=== PATIENT | female | born 1950 | race Caucasian/White ===

== ENCOUNTER 2025-01-27 09:02 | Outpatient (CLI) | payer OTHER, SELFPAY | END 2025-01-27 09:03 | disposition home or self-care (01) | LOC: AMB 01-28 13:19 | PROVIDERS: PCP Internal Medicine; Visit Provider Emergency Medicine | DX: R11.2 Nausea with vomiting, unspecified (principal) | CPT/HCPCS: A0425; A0427 ==

== ENCOUNTER 2025-01-27 09:30 | Emergency (ER) | payer OTHER, SELFPAY ==
[2025-01-27] VITALS (27 sets, daily range): BP systolic 89–125; BP diastolic 46–67; PULSE 53–77; RESP 6–18; TEMP 36.1–36.3; O2SAT 87–100; BMI 30.5
--- NOTE | 2025-01-27 09:53 | CRLHL7_ITS ---
For Patients: As a result of the 21st Century Cures Act, medical imaging exams and procedure reports are released immediately into your electronic medical record. You may view this report before your referring provider. If you have questions, please contact your health care provider. INDICATION: Coffee-ground emesis. Abdominal pain. TECHNIQUE: CTA abdomen and pelvis acquired without and with 95 mL Isovue 370 IV contrast. Coronal and sagittal MIP reconstructions were performed. COMPARISON: None available. FINDINGS: Lower chest: Bibasilar subsegmental atelectasis. Punctate pulmonary nodules in the anterior right lower lobe measuring up to 0.2 cm. Liver: No suspicious focal hepatic lesion, noting that the superior liver was not included within field of view on venous phase imaging. Gallbladder and bile ducts: Extensive cholelithiasis. No secondary signs of acute cholecystitis. Pancreas: Fatty atrophy. No pancreatic duct dilation. Spleen: Unremarkable. Adrenal glands: Unremarkable. Kidneys: Kidneys enhance symmetrically, without hydronephrosis. Bilateral percutaneous nephrostomy tubes are present. There is significant air within the left renal collecting system, without significant perinephric inflammation. Small amount of air within the right renal collecting system. Too small to characterize hypodense left renal lesions. Retroperitoneum: Minimally enlarged left retroperitoneal lymph nodes. Bowel and mesentery: Postsurgical changes of subtotal colectomy, with left lower quadrant end colostomy. Large parastomal hernia is present, which contains a short segment loop of small bowel. Although the affected loops of small bowel are not significantly dilated, there is mild perienteric inflammation, worrisome for early small bowel obstruction. Adjacent to the blind ending rectal stump, there is significant inflammation, as well as a small collection/abscess measuring approximately 3.3 x 2.3 cm. This abuts the urinary bladder, and appears to fistulize/invade. Persistent ill-defined soft tissue is present adjacent to the rectal stump sutures and cecum. Probable prominent duodenal diverticulum. Bladder: Large amount of non dependent air within the urinary bladder, with findings suspicious for fistulization with the rectal stump. Reproductive organs: Post hysterectomy. Pelvic lymph nodes: No lymphadenopathy. Vessels: Atherosclerotic calcifications. Abdominal wall: Multiple abdominal wall hernias and parastomal hernia as above. Bones: Multilevel degenerative changes of the spine. Bones are diffusely osteopenic. IMPRESSION: 1. 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 2. Significant inflammation adjacent to the blind ending rectal stump, with a small collection/abscess measuring approximately 3.3 x 2.3 cm. This appears to abut and fistulize/invade into the urinary bladder, where there is a large amount of non dependent air. 3. Air is present within the bilateral renal collecting systems, left greater than right. No significant perinephric or periureteral inflammation is present, findings are favored to reflect sequelae of percutaneous nephrostomy tube manipulation, correlate clinically for pyelonephritis. 4. Indeterminate minimally enlarged left retroperitoneal lymph nodes, and punctate pulmonary nodules. Please note that all CT scans at this facility use dose modulation, iterative reconstruction, and/or weight-based dosing when appropriate to reduce radiation dose to as low as reasonably achievable. Dictated by Erasmo Laird MD @ 01/27/2025 12:42:41 PM (Electronically Signed)
[2025-01-27 10:04] LABS: Lactate* 1.3 mmol/L (0.5-1.9)
[2025-01-27] MEDS: fentaNYL 100 MCG/2 ML inj 50 MCG IVP (10:16)
[2025-01-27] MEDS: ONDANSETRON 2 MG/ML inj 4 MG IVP (10:16)
[2025-01-27] MEDS: PANTOPRAZOLE SODIUM 40 MG INJ 80 MG IVP (10:16)
[2025-01-27] MEDS: 0.9 % SODIUM CHLORIDE 500 ML 500 ML IV (10:17)
[2025-01-27 10:18] LABS: Basophils Percent Auto 0.1 % (0.0-3.0); Eosinophils Percent Auto 2.8 % (0.0-7.0); Hematocrit 33.4 % (33.0-51.0); Hemoglobin* 9.3 gm/dL (12.0-16.0); Immature Granulocytes Pct Auto 0.3 %; Lymphocytes Percent Auto 6.6 % (20-44); Mean Corpuscular HGB Conc 28 gm/dL (32-36); Mean Corpuscular Hemoglobin 23 pg (26-34); Mean Corpuscular Volume 81 fL (80-100); Monocytes Percent Auto 5.1 % (0.0-11.0); Neutrophils Percent Auto 85.1 % (42.0-72.0); Platelet Count* 292 K/uL (140-440); RDW Coefficient of Variation % 18.2 % (11.5-15.5); Red Blood Count 4.11 m/uL (4.00-5.20); White Blood Count* 14.74 K/uL (4.50-11.00)
[2025-01-27 10:22] LABS: Chloride* 99 mmol/L (96-114); Potassium* 5.1 mmol/L (3.6-5.1); Slide Review Reflex Yes; Sodium* 139 mmol/L (135-149)
[2025-01-27 10:24] LABS: Alanine Aminotransferase* 11 U/L (4-35); Alkaline Phosphatase* 110 U/L (40-150); Anion Gap 6 mEq/L (7-15); Aspartate Amino Transferase* 22 U/L (12-35); Bilirubin Total* 0.4 mg/dL (0.1-1.5); Blood Urea Nitrogen* 27 mg/dL (7-30); Carbon Dioxide* 34 mmol/L (20-32); Creatinine* 1.4 mg/dL (0.5-1.5); Est. Creatinine Clearance* 31.72; Estimated Glomerular Filt Rate 39 ml/min
[2025-01-27 10:25] LABS: Calcium* 9.6 mg/dL (8.4-10.6); Glucose* 132 mg/dL (60-115); INR 1.06 (0.91-1.10); Lipase* 58 U/L (23-300); Prothrombin Time 14.7 Seconds
[2025-01-27 10:52] LABS: Slide Review Acceptable Review (Acceptable)
--- NOTE | 2025-01-27 11:02 | ED.GENADULT ---
HPI - General Adult General Chief complaint: GI Bleed Stated complaint: GI Time Seen by Provider: 01/27/25 09:53 History of Present Illness HPI narrative: 74-year-old female with a complex past medical history was brought to the ER today from her care center at [facility] by EMS for evaluation of acute upper GI bleed. History from paramedics is that she is medically complex. She has long-term resident of [facility] [address]. 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 She is on Eliquis (unknown indication). No she started having nausea and indigestion yesterday and this morning had a large volume visible coffee-ground emesis 1 time. They describe 200-300 mL of coffee-ground blood. Since vomiting the patient says she is feeling better. Indigestion and nausea are resolved. Blood pressure was in low normal range 90s over 50s. History from the patient is that she does have recent UTIs. It turns out she was probably in the hospital at [place] about a week ago and was discharged. She does not think she has been on the oral antibiotics since discharge (sounds like maybe she finished up her antibiotic course with IV meds given in the hospital). She is on Eliquis for stroke prophylaxis with AFib. She does not recall any previous history of DVT or PE. She does have a chronic ostomy in her left lower quadrant. She also has a fistula in her right lower quadrant that has been draining some fluid lately. Her current fistula started a couple of weeks ago, she thinks. 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 She does not know of any previous history of Crohn's. Unclear why she is getting the fistulas. She also has bilateral nephrostomy tubes. She is not sure why they replaced. They have been draining yellow fluid. She know she has a history of gallstones but never got her gallbladder out. She apparently says that her doctors told her that if the gallbladder was not assume the series problems, she would be better off not have surgery. She has a history of acute kidney injury from NSAIDs so no longer takes them (and has not taken them for years). We think her most recent dose of Eliquis was last night. She does take chronic oxycodone for her low back pain (5 mg b.i.d.) but was not able to take it this morning. She is asking for an oxy now because her back is hurting. Per her the paperwork that she brought with her from [facility] her she had a hemoglobin of 7.7 drawn and that [facility] on 01/20. Baseline creatinine about 1.3. Related Data Home Medications ?Medication ?Instructions ?Recorded ?Confirmed acetaminophen 1,000 mg PO TID PRN 01/27/25 01/27/25 albuterol 90 mcg/actuation aerosol mcg inhalation 01/27/25 inhaler apixaban 2.5 mg tablet 2.5 mg PO BID 01/27/25 01/27/25 cyanocobalamin (vitamin B-12) 1,000 mcg PO DAILY 01/27/25 01/27/25 1,000 mcg capsule duloxetine 60 mg capsule,delayed 60 mg PO DAILY 01/27/25 01/27/25 release (Cymbalta) famotidine 20 mg tablet 20 mg PO DAILY 01/27/25 01/27/25 gabapentin 100 mg capsule 100 mg PO TID 01/27/25 01/27/25 magnesium oxide 400 mg PO DAILY 01/27/25 01/27/25 nystatin 100,000 unit/gram topical 1 applic topical TID 01/27/25 01/27/25 powder oxycodone 5 mg capsule 5 mg PO Q12H 01/27/25 01/27/25 polyethylene glyco 17 gm 1 sc PO DAILY 01/27/25 01/27/25 rosuvastatin 10 mg tablet (Crestor) 10 mg PO DAILY 01/27/25 01/27/25 sennosides 8.6 mg-docusate sodium 1 tab-cap PO BID 01/27/25 01/27/25 50 mg tablet (Docuzen) simethicone 125 mg tablet 125 mg PO TID-QID PRN 01/27/25 01/27/25 (Bicarsim Forte) Allergies Allergy/AdvReac Type Severity Reaction Status Date / Time aspirin Allergy Unknown Verified 01/27/25 09:51 calcium Allergy Unknown Verified 01/27/25 09:51 cetirizine Allergy Unknown Verified 01/27/25 09:51 ibuprofen (From Motrin) Allergy Unknown Verified 01/27/25 09:51 sulfamethoxazole (From Allergy Unknown Verified 01/27/25 09:51 Bactrim) trimethoprim (From Bactrim) Allergy Unknown Verified 01/27/25 09:51 [facility] Social History Smoking Status: Current some day smoker What tobacco products do you use: cigarettes Do you use any of these nicotine containing products: None How often do you have a drink containing alcohol: never How often do you have six or more drinks on one occasion: Never AUDIT-C Alcohol total score: 0 service: No Exam Narrative: Exam Narrative: Constitutional: Appears well-developed and well-nourished. Alert. Conversant. Non toxic. HENT: Head: Atraumatic. Nose: Nose normal. Mouth/Throat: Oral mucosa is clear and moist. no trismus. Pharynx normal. Tonsils symmetric. No tonsillar enlargement, erythema, or exudate. Eyes: Conjunctivae pale. EOM normal. Pupils equal, round, and reactive to light. No scleral icterus. Neck: Normal range of motion. Neck supple. No tracheal deviation present. Cardiovascular: Normal rate, regular rhythm. No gallop. No friction rub. No murmur heard. Symmetric radial artery pulses Pulmonary/Chest: Effort normal. No stridor. No respiratory distress. No wheezes. No rales. No rhonchi . No tenderness. Abdominal: Soft. Bowel sounds normal. No distension. No mass. Mild epigastric and suprapubic tenderness. No rebound. No guarding. Ostomy in left lower quadrant draining air and soft light brown stool. No blood or melena. She also has a fistula in her right lower quadrant with the opening just below the skin fold of her pannus. Skin around the fistula looks good. Does a small amount of clear fluid there but I do not see any blood or purulent drainage coming out. She also has bilateral nephrostomy tubes in each of them are draining light yellow urine. No bloody or cloudy urine. Musculoskeletal: RUE: Normal range of motion. No tenderness. No deformity LUE: Normal range of motion. No tenderness. No deformity RLE: Normal range of motion. No edema. No tenderness. No deformity LLE: Normal range of motion. No edema. No tenderness. No deformity Neurological: Alert and oriented to person, place, and time. Normal strength. CN II-VII intact. No sensory deficit. GCS eye subscore is 4. GCS verbal subscore is 5. GCS motor subscore is 6. Normal coordination Skin: Skin is warm and dry. No rash noted. Pale but not mottled in no pallor. Normal capillary refill. Psychiatric: Normal mood. Normal affect. Const: Vital Signs, click to edit/add: Vital Signs - 24 hr 01/27/25 09:41 01/27/25 10:00 01/27/25 10:20 Temperature 97.4 F L Pulse Rate Pulse Rate [Pulse Oximeter] 77 Respiratory Rate 16 16 16 Blood Pressure Blood Pressure [Ri ght Upper Arm] 103/67 Pulse Oximetry 87 L 92 88 Oxygen Delivery Me thod Room Air Nasal Cannula Nasal Cannula Oxygen Flow Rate 2 2 01/27/25 10:30 01/27/25 11:02 01/27/25 11:14 Temperature Pulse Rate 60 66 Pulse Rate [Pulse Oximeter] 66 Respiratory Rate 16 16 Blood Pressure 94/52 L Blood Pressure [Ri ght Upper Arm] 125/60 Pulse Oximetry 93 95 Oxygen Delivery Me thod Nasal Cannula Nasal Cannula Oxygen Flow Rate 3 3 01/27/25 11:33 01/27/25 11:45 01/27/25 12:00 Temperature Pulse Rate 57 L 55 L 62 Pulse Rate [Pulse Oximeter] Respiratory Rate 11 L 11 L 12 Blood Pressure Blood Pressure [Ri ght Upper Arm] Pulse Oximetry 99 97 99 Oxygen Delivery Me thod Oxygen Flow Rate 01/27/25 12:15 01/27/25 13:11 Temperature 97.2 F L Pulse Rate 58 L 54 L Pulse Rate [Pulse Oximeter] Respiratory Rate 7 L 16 Blood Pressure 94/52 L 95/50 L Blood Pressure [Ri ght Upper Arm] Pulse Oximetry 98 99 Oxygen Delivery Me thod Nasal Cannula Oxygen Flow Rate 2 Course Course ED Course: Recheck-blood pressure stable. Says she is feeling better. Reevaluation(s) Reevaluation #1: Recheck-patient gone to CT. CBC actually shows a white count of 14. Unclear if she has an infection or this is reactive. Hemoglobin is 9.1 this morning which is actually up about a g and half compared to last week. Suspect this is probably due to hemoconcentration. Clinically she looks pale and with reported baseline hemoglobin of 7.7 and this morning, I suspect her true hemoglobin is probably lower then 9.1. I have ordered 1 unit of crossmatched packed red cells. Patient gives verbal and written consent. Vital Signs Vital signs: Initial Vital Signs Temperature 97.4 F L 01/27/25 09:41 Temperature Source Temporal Artery Scan 01/27/25 09:41 Pulse Rate 77 01/27/25 09:41 Respiratory Rate 16 01/27/25 09:41 Blood Pressure 103/67 01/27/25 09:41 Blood Pressure Mean 79 01/27/25 09:41 Blood Pressure Position Sitting 01/27/25 09:41 Pulse Oximetry 87 L 01/27/25 09:41 Oxygen Delivery Method Room Air 01/27/25 09:41 Vital Signs Temperature 97.4 F L 01/27/25 09:41 Pulse Rate 77 01/27/25 09:41 Respiratory Rate 16 01/27/25 09:41 Blood Pressure 103/67 01/27/25 09:41 Pulse Oximetry 87 L 01/27/25 09:41 Oxygen Delivery Method Room Air 01/27/25 09:41 Temperature 97.2 F L 01/27/25 13:11 Pulse Rate 54 L 01/27/25 13:11 Respiratory Rate 16 01/27/25 13:11 Blood Pressure 95/50 L 01/27/25 13:11 Pulse Oximetry 99 01/27/25 13:11 Oxygen Delivery Method Nasal Cannula 01/27/25 12:15 Oxygen Flow Rate 2 01/27/25 12:15 Medications Administered Medications: Generic Name Dose Route Start Last Admin Trade Name Freq PRN Reason Stop Dose Admin Piperacillin Sod/Tazobactam 100 mls @ 200 mls/hr 01/27/25 13:30 01/27/25 13:28 Sod 4.5 gm/ Sodium Chloride IVPB 200 mls/hr Q6H YE Administration Discontinued Medications Generic Name Dose Route Start Last Admin Trade Name Freq PRN Reason Stop Dose Admin Fentanyl 50 mcg 01/27/25 10:06 01/27/25 10:16 Fentanyl 100 Mcg/2 Ml Inj IVP 01/27/25 10:07 50 mcg ONCE ONE Administration Sodium Chloride 500 mls @ 500 mls/hr 01/27/25 09:53 01/27/25 10:17 0.9 % Sodium Chloride 500 Ml IV 01/27/25 10:52 500 mls/hr .Q1H ONE Administration Ondansetron HCl 4 mg 01/27/25 09:53 06/10/25 10:16 Ondansetron 2 Mg/Ml Inj IVP 01/27/25 09:54 4 mg ONCE ONE Administration Pantoprazole Sodium 80 mg 01/27/25 09:53 01/27/25 10:16 Pantoprazole Sodium 40 Mg Inj IVP 01/27/25 09:54 80 mg ONCE ONE Administration Medical Decision Making MDM Narrative Medical decision making narrative: 74-year-old female with a complex past medical history brought to the ER today by EMS after what appears to be upper GI bleed. She had nausea and indigestion overnight last night with a single volume of a few 100 mL of coffee-ground emesis this morning. She has not had any recent melena and in fact has had light brown stool from her colostomy. No other visible GI bleeding. No bleeding from her nephrostomy tubes or from her right lower quadrant fistula. 1. Upper GI bleed. Fortunately patient has stable blood pressure and pulse. Normal mental status. Blood pressure is in the low-normal range about 95/55. Pulse is in the 70s. Patient says she typically tends to run low normal blood pressures so this may be approximately her baseline. No evidence for shock or hypotension yet. Based on her provided paperwork her hemoglobin was low last week on 01/20. It was 7.7. Today hemoglobin is actually up to 9.1 which I think probably reflects hemoconcentration from dehydration since she has really not been wanting to eat or drink all night overnight. Based on the patient's baseline low hemoglobin and described loss of a couple 100 mL of coffee-ground emesis I am concerned that she probably is developing worsening anemia. I think rehydration with only crystalloid could potentially lead to worsening dilutional anemia and ultimately coagulopathy. We did give a small fluid bolus. Discussed with our hospitalist, Dr. Sims. And with our surgeon, Dr. Ponce. Given the patient's medical complexity and current anticoagulation with Eliquis, they do not feel it is appropriate to admit her here in [place] were we have limited GI capabilities and subspecialty consultation ability. They recommend transfer. In discussion with Dr. Sims he and I agree that given the patient's baseline anemia and significant bleeding this morning that initiation of transfusion now to prevent worsening anemia would be appropriate. I did order crossmatch and infusion of 1 unit packed red cells. Since she arrived here in the ER her indigestion and nausea has resolved. She is feeling better. She has not had any further vomiting since her episode this morning. She was not able to take her Eliquis this morning so her last dose would have been yesterday evening. Consider possible reversal of Eliquis with index and alpha or Kcentra. However since she seems to be somewhat stable, and given the risk of thrombotic events with full reversal, will monitor the patient carefully, hold further Eliquis for now, but hold off on full reversal. Protonix ordered for possible peptic ulcer disease. She does not take any NSAIDs but I wonder if this could be a stress ulcer given her medical comorbidities and her recent admission. She has no history of liver disease to raise risk for varices. GI bleed protocol abdomen/pelvis CT shows no active GI bleeding. It does show possibly early acute small-bowel obstruction but clinically the patient is not having any further vomiting, distension and she still has output into her ostomy. Not clear if this is truly a bowel obstruction. 2. Labs do show a leukocytosis of white count of 14.7. CT scan does show evidence for inflammation around her rectal stump and a possible small abscess in the pelvis. Will add Zosyn. Discussed these unexpected findings with the hospitalist at [place]. 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 He agrees with addition of Zosyn and will arrange consult with Colorectal surgery when she arrives. 3. She does have chronic renal disease. BUN 27 creatinine 1.4 today. Electrolytes fairly well balance. She does have elevated bicarb due to chronic respiratory acidosis. 4. LFTs are normal. Lipase normal. 5. Disposition. Patient is medically complex and in discussion with my hospitalist and surgeon they recommend transfer. Discussed with the hospitalist from [facility], Dr. Darek whyte. He accepts the patient for admission but unfortunately there may be up to an 8 hour delay before they can have a bed to accommodate her. Lab Data Labs: Lab Results 01/27/25 Range/Units 10:00 WBC 14.74 H (4.50-11.00) K/uL RBC 4.11 (4.00-5.20) m/uL Hgb 9.3 L (12.0-16.0) gm/dL Hct 33.4 (33.0-51.0) % MCV 81 (80-100) fL MCH 23 L (26-34) pg MCHC 28 L (32-36) gm/dL RDW Coeff of Manuel 18.2 H (11.5-15.5) % Plt Count 292 (140-440) K/uL Neut % (Auto) 85.1 H (42.0-72.0) % Lymph % (Auto) 6.6 L (20-44) % [place] % (Auto) 5.1 (0.0-11.0) % Eos % (Auto) 2.8 (0.0-7.0) % Baso % (Auto) 0.1 (0.0-3.0) % Neut # (Auto) 12.50 H (1.7-7.0) K/uL Lymph # (Auto) 1.00 (0.90-2.90) K/uL [place] # (Auto) 0.80 (0.00-0.90) K/UL Eos # (Auto) 0.40 (0.00-0.50) K/uL Baso # (Auto) 0.00 (0.00-0.30) K/uL Abs Immat Gran (auto) 0.00 (0.00-0.30) K/uL Imm/Tot Granulo (auto) 0.3 % Diff Slide Review Acceptable Review (Acceptable) INR 1.06 (0.91-1.10) Sodium 139 (135-149) mmol/L Potassium 5.1 (3.6-5.1) mmol/L Chloride 99 (96-114) mmol/L Carbon Dioxide 34 H (20-32) mmol/L Anion Gap 6 L (7-15) mEq/L BUN 27 (7-30) mg/dL Creatinine 1.4 (0.5-1.5) mg/dL Estimated Creat Clear 31.72 Estimated GFR 39 ml/min Glucose 132 H (60-115) mg/dL Lactate 1.3 (0.5-1.9) mmol/L Calcium 9.6 (8.4-10.6) mg/dL Total Bilirubin 0.4 (0.1-1.5) mg/dL AST 22 (12-35) U/L ALT 11 (4-35) U/L Alkaline Phosphatase 110 (40-150) U/L Total Protein 8.0 (6.0-8.3) g/dL Albumin 4.0 (3.3-5.0) g/dL Lipase 58 (23-300) U/L Blood Type A Positive Antibody Screen NEGATIVE Crossmatch (AHG) See Detail Imaging Data CT scan - abdomen: My impression: IMPRESSION: 1. 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 2. Significant inflammation adjacent to the blind ending rectal stump, with a small collection/abscess measuring approximately 3.3 x 2.3 cm. This appears to abut and fistulize/invade into the urinary bladder, where there is a large amount of non dependent air. 3. Air is present within the bilateral renal collecting systems, left greater than right. No significant perinephric or periureteral inflammation is present, findings are favored to reflect sequelae of percutaneous nephrostomy tube manipulation, correlate clinically for pyelonephritis. 4. Indeterminate minimally enlarged left retroperitoneal lymph nodes, and punctate pulmonary nodules. ECG Data Attestation: I personally reviewed and interpreted this ECG as follows: Interpretation: Normal sinus rhythm with first-degree AV block Rate: 60 MS: 212 QRS axis: Left axis. Pulmonary disease pattern. ST segment/T wave: No ST segment elevation or depression QTc: 458 Discharge Plan Discharge Clinical Impression: Acute upper gastrointestinal bleeding, Anemia, Abscess of pelvis, [place]-vesical fistula Patient Disposition: Xfer Other Prescriptions: No Action acetaminophen 1,000 mg PO TID PRN sennosides-docusate sodium [Docuzen] 8.6-50 mg tablet 1 tab-cap PO BID cyanocobalamin (vitamin B-12) 1,000 mcg capsule 1,000 mcg PO DAILY magnesium oxide 400 mg magnesium capsule 400 mg PO DAILY gabapentin 100 mg capsule 100 mg PO TID famotidine 20 mg tablet 20 mg PO DAILY apixaban 2.5 mg tablet 2.5 mg PO BID duloxetine [Cymbalta] 60 mg capsule,delayed release(DR/EC) 60 mg PO DAILY oxycodone 5 mg capsule 5 mg PO Q12H Bicarsim Forte 125 mg tablet 125 mg PO TID-QID PRN rosuvastatin [Crestor] 10 mg tablet 10 mg PO DAILY nystatin 100,000 unit/gram powder 1 applic topical TID albuterol 90 mcg/actuation aerosol inhalation polyethylene glyco 17 gm 1 sc PO DAILY Stand Alone Forms: [facility] Info Instructions
[2025-01-27] MEDS: PIPERACILLIN/TAZOBACTAM 4.5 GM in 0.9 % SODIUM CHLORIDE Mini-bag 100 ML IVPB (13:28)
== END 2025-01-27 14:30 | disposition other institution (70) ==
PROVIDERS: Emergency Provider Emergency Medicine; PCP Internal Medicine
DX: D64.9 Anemia, unspecified (principal); K92.2 Gastrointestinal hemorrhage, unspecified; N73.9 Female pelvic inflammatory disease, unspecified; K63.2 Fistula of intestine
CPT/HCPCS: 36415; 36430; 74174; 80053; 83605; 83690; 85025; 85610; 86850; 86900; 86901; 86922; 93005; 96374; 96375; 99284; 99285; J2405; J2470; J2543; J3010; J7030; P9016; Q9967

== ENCOUNTER 2025-01-27 14:28 | Outpatient (CLI) | payer OTHER, SELFPAY | END 2025-01-27 14:29 | disposition home or self-care (01) | LOC: AMB 01-28 14:15 | PROVIDERS: PCP Internal Medicine; Visit Provider Emergency Medicine | DX: K92.2 Gastrointestinal hemorrhage, unspecified (principal); D64.9 Anemia, unspecified | CPT/HCPCS: A0425; A0434 ==